=== PATIENT | female | born 1965 | race Caucasian/White ===

== ENCOUNTER → 2017-03-01 | Outpatient (CLI) | payer BC ==
--- NOTE | 2017-03-04 08:11 | MM ---
Reason for exam: follow-up at short interval from prior study. Last mammogram was performed 4 months ago. History: Family history of breast cancer in mother at age 62. Benign US biopsy breast VAD LT of the left breast, November 15, 2016. Physical Findings: Nurse did not find any significant physical abnormalities on exam. MG Diagnostic Mammo LT w CAD CC, MLO, and ML view(s) were taken of the left breast. Prior study comparison: November 15, 2016, left breast MG diagnostic mammo LT wo CAD. November 13, 2016, left breast MG diagnostic mammo LT w CAD. The breast tissue is heterogeneously dense. This may lower the sensitivity of mammography. Previous ultrasound biopsy in the left breast. No significant new findings when compared with previous films. These results were verbally communicated with the patient and result sheet given to the patient on 03/01/17. ASSESSMENT: Benign, BI-RAD 2 RECOMMENDATION: Follow-up diagnostic mammogram of both breasts in 6 months.
--- NOTE | 2017-03-04 08:13 | USB ---
Reason for exam: follow-up at short interval from prior study. History: Family history of breast cancer in mother at age 62. Benign US biopsy breast VAD LT of the left breast, November 15, 2016. US Breast LT Left breast ultrasound includes all four quadrants, the retroareolar region and axilla. Finding demonstrate a 0.4 x 0.3 x 0.6cm oval, smooth, hypoechoic lesion at 9 o'clock. 12 o'clock area not definitely seen. These results were verbally communicated with the patient and result sheet given to the patient on 03/01/17. ASSESSMENT: Probably benign, BI-RAD 3 RECOMMENDATION: Ultrasound of the left breast in 6 months.
== END | disposition home or self-care (01) ==
LOC: RADMAMWWP 08:56
PROVIDERS: ATTEND Surgery
DX: R92.8 Other abnormal and inconclusive findings on diagnostic imaging of breast (principal)
CPT/HCPCS: 76641; G0206

== ENCOUNTER → 2017-11-25 | Outpatient (CLI) | payer BC ==
--- NOTE | 2017-11-26 07:54 | MM ---
Reason for exam: additional evaluation requested from prior study. Last mammogram was performed 9 months ago. History: Family history of breast cancer in mother at age 62. Benign US biopsy breast VAD LT of the left breast, November 15, 2016. Physical Findings: Nurse Summary: 1cm nodule in the left breast at 1 o'clock (nurse dw). MG Diagnostic Mammo w CAD CRIS Bilateral CC and MLO view(s) were taken. Prior study comparison: March 01, 2017, left breast MG diagnostic mammo LT w CAD. November 15, 2016, left breast MG diagnostic mammo LT wo CAD. The breast tissue is heterogeneously dense. This may lower the sensitivity of mammography. No suspicious abnormality. Left biopsy marker. No significant new findings when compared with previous films. These results were verbally communicated with the patient and result sheet given to the patient on 11/25/17. ASSESSMENT: Benign, BI-RAD 2 RECOMMENDATION: Routine screening mammogram of both breasts in 1 year.
--- NOTE | 2017-11-26 08:07 | USB ---
Reason for exam: additional evaluation requested from prior study. History: Family history of breast cancer in mother at age 62. Benign US biopsy breast VAD LT of the left breast, November 15, 2016. US Breast LT Left breast ultrasound includes all four quadrants, the retroareolar region and axilla. Finding demonstrates a 0.4 x 0.3 x 0.5cm oval, hypoechoic lesion at 9 o'clock, unchanged over approximately 1 year time period. These results were verbally communicated with the patient and result sheet given to the patient on 11/25/17. ASSESSMENT: Probably benign, BI-RAD 3 RECOMMENDATION: Ultrasound of the left breast in 1 year. (9 o'clock)
== END | disposition home or self-care (01) ==
LOC: RADMAMWWP 14:18
PROVIDERS: ATTEND Surgery
DX: R92.8 Other abnormal and inconclusive findings on diagnostic imaging of breast (principal); Z80.3 Family history of malignant neoplasm of breast
CPT/HCPCS: 77066

== ENCOUNTER → 2019-12-16 | Outpatient (CLI) | payer BC ==
--- NOTE | 2019-12-16 14:51 | MM ---
Reason for exam: additional evaluation requested from prior study. Last mammogram was performed 2 years and 1 month ago. History: Family history of breast cancer in mother at age 62. Benign US biopsy breast VAD LT of the left breast, November 15, 2016. Physical Findings: Nurse Summary: 1cm nodule in the left breast at 8 o'clock (nurse makayla). MG Diagnostic Mammo w CAD CRIS Bilateral CC and MLO view(s) were taken. Prior study comparison: November 25, 2017, bilateral MG diagnostic mammo w CAD CRIS. March 01, 2017, left breast MG diagnostic mammo LT w CAD. The breast tissue is heterogeneously dense. This may lower the sensitivity of mammography. No suspicious abnormality. Left biopsy marker noted. These results were verbally communicated with the patient and result sheet given to the patient on 12/16/19. ASSESSMENT: Negative, BI-RAD 1 RECOMMENDATION: Routine screening mammogram of both breasts in 1 year.
--- NOTE | 2019-12-16 14:54 | USB ---
Reason for exam: additional evaluation requested from prior study. History: Family history of breast cancer in mother at age 62. Benign US biopsy breast VAD LT of the left breast, November 15, 2016. US Breast LT Left complete breast ultrasound includes all four quadrants, the retroareolar region and axilla. Finding demonstrates a 4 x 2 x 5mm oval, cystic lesion at 9 o'clock, unchanged from previous, appears more cystic on today's exam. This is not enlarged compared to 03/01/17, benign. These results were verbally communicated with the patient and result sheet given to the patient on 12/16/19. ASSESSMENT: Benign, BI-RAD 2 RECOMMENDATION: Routine screening mammogram of both breasts in 1 year.
== END | disposition home or self-care (01) ==
LOC: RADMAMWWP 13:42
PROVIDERS: ATTEND Pediatrics
DX: R92.8 Other abnormal and inconclusive findings on diagnostic imaging of breast (principal)
CPT/HCPCS: 77066

== ENCOUNTER → 2024-01-01 | Outpatient (CLI) | payer BC ==
--- NOTE | 2024-01-02 22:15 | MM ---
Reason for Exam: Screening (asymptomatic). Last screening mammogram was performed 12 month(s) ago. Patient History: Menarche at age 15. First Full-Term at age 25. Postmenopausal. 11/15/2016, Benign Core Biopsy on the left side. Mother had breast cancer, age 62. Risk Values: Berkley 5 year model risk: 2.8%. NCI Lifetime model risk: 15.6%. Prior Study Comparison: 12/16/2019 Bilateral Diagnostic Mammogram, [facility]. 12/29/2021 Bilateral Screening Mammogram, [facility]. 12/31/2022 Bilateral MG screening mammo w CAD, [facility]. Tissue Density: The breast tissue is heterogeneously dense. This may lower the sensitivity of mammography. Findings: Analyzed By CAD. Microclip left breast from prior biopsy. Unchanged bilateral areas of asymmetric density. There is no suspicious group of microcalcifications or new suspicious mass in either breast. Overall Assessment: Benign, BI-RAD 2 Management: Screening Mammogram of both breasts in 1 year. . Patient should continue monthly self-breast exams. A clinical breast exam by your physician is recommended on an annual basis. This exam should not preclude additional follow-up of suspicious palpable abnormalities. Note on Berkley scores and lifetime risk: 1. A Berkley score greater than 3% is considered moderate risk. If this is the case, consider specialist referral to assess eligibility for a risk reducing agent. 2. If overall lifetime risk for the development of breast cancer is 20% or higher, the patient may qualify for future screening with alternating mammogram and breast MRI. Electronically signed and approved by: Alexys Valerio M.D. Radiologist
== END | disposition home or self-care (01) ==
LOC: RADMAMWWP 15:35
PROVIDERS: ATTEND Pediatrics
DX: Z12.31 Encounter for screening mammogram for malignant neoplasm of breast (principal); Z80.3 Family history of malignant neoplasm of breast; Z78.0 Asymptomatic menopausal state
CPT/HCPCS: 77067

== ENCOUNTER → 2025-03-10 | Outpatient (CLI) | payer BC ==
--- NOTE | 2025-03-11 07:39 | MM ---
Reason for Exam: Screening (asymptomatic). Last mammogram was performed 1 year(s) and 2 month(s) ago. Patient History: Menarche at age 15. First Full-Term at age 25. Postmenopausal. 11/15/2016, Benign Core Biopsy on the left side. Mother had breast cancer, age 62. Risk Values: Berkley 5 year model risk: 2.9%. NCI Lifetime model risk: 15.2%. Prior Study Comparison: 12/29/2021 Bilateral Screening Mammogram, [facility]. 12/31/2022 Bilateral MG screening mammo w CAD, [facility]. 01/01/2024 Bilateral MG screening mammo w CAD, [facility]. Tissue Density: The breasts are heterogeneously dense, which may obscure small masses. Findings: Analyzed By CAD. There is no suspicious group of microcalcifications or new suspicious mass in either breast. Overall Assessment: Negative, BI-RAD 1 Management: Screening Mammogram of both breasts in 1 year. . Patient should continue monthly self-breast exams. A clinical breast exam by your physician is recommended on an annual basis. This exam should not preclude additional follow-up of suspicious palpable abnormalities. Note on Berkley scores and lifetime risk: 1. A Berkley score greater than 3% is considered moderate risk. If this is the case, consider specialist referral to assess eligibility for a risk reducing agent. 2. If overall lifetime risk for the development of breast cancer is 20% or higher, the patient may qualify for future screening with alternating mammogram and breast MRI. [facility], , 03/11/2025 7:35 AM. Electronically signed and approved by: Claudio Baron M.D. Radiologis
== END | disposition home or self-care (01) ==
LOC: RADMAMWWP 15:54
PROVIDERS: ATTEND Pediatrics
DX: Z12.31 Encounter for screening mammogram for malignant neoplasm of breast (principal); R92.333 Mammographic heterogeneous density, bilateral breasts; Z78.0 Asymptomatic menopausal state; Z80.3 Family history of malignant neoplasm of breast
CPT/HCPCS: 77067